=== PATIENT | female | born 1985 | race Caucasian/White ===

== ENCOUNTER 2025-03-24 19:59 | Emergency (ER) | payer OTHER ==
[2025-03-24] MEDS: Sodium Chloride 0.9% 10 ML Syringe FLUSH PRN (20:34)
[2025-03-24 20:37] LABS: BASOPHILS PERCENT AUTO 0.3 % (0.1-1.3); EOSINOPHILS PERCENT AUTO 0.3 % (0.0-5.4); HEMATOCRIT 38.1 % (34.3-46.0); HEMOGLOBIN 12.8 g/dL (11.2-15.5); IMMATURE GRAN ABSOLUTE AUTO 0.03 K/uL (0.00-0.23); IMMATURE GRAN PERCENT AUTO 0.4 % (0.0-0.7); LYMPHOCYTES ABSOLUTE AUTO 1.94 K/uL (0.8-3.3); LYMPHOCYTES PERCENT AUTO 26.1 % (11.4-47.7); MEAN CORPUSCULAR HEMOGLOBIN 30.6 pg (31.6-35.5); MEAN CORPUSCULAR HGB CONC 33.6 g/dL (31.6-35.5); MEAN CORPUSCULAR VOLUME 91.1 fL (81.4-99.0); MONOCYTES ABSOLUTE AUTO 0.53 K/uL (0.20-0.90); MONOCYTES PERCENT AUTO 7.1 % (3.3-12.6); NEUTROPHILS ABSOLUTE AUTO 4.88 K/uL (1.0-7.6); NEUTROPHILS PERCENT AUTO 65.8 % (40.0-78.1); PLATELET COUNT,PLT 195 K/uL (130-375); RED BLOOD CELL COUNT 4.18 M/uL (3.77-5.24); WHITE BLOOD CELL COUNT,WBC 7.4 K/uL (3.2-11.0)
[2025-03-24 20:38] LABS: BASOPHILS ABSOLUTE AUTO 0.02 K/uL (0.00-0.10); EOSINOPHILS ABSOLUTE AUTO 0.02 K/uL (0.00-0.40)
[2025-03-24 21:01] LABS: A/G RATIO 1.2 (1.2-2.2); ALANINE AMINOTRANSFERASE,ALT 27 U/L (12-78); ALBUMIN 4.1 g/dL (3.4-5.0); ALKALINE PHOSPHATASE 52 U/L (46-116); ASPARTATE AMNIOTRANSFERASE,AST 23 U/L (15-37); BILIRUBIN TOTAL 0.7 mg/dL (0.2-1.0); BLOOD UREA NITROGEN,BUN 13 mg/dL (7-18); CARBON DIOXIDE,CO2 28 mmol/L (21-32); CHLORIDE,CL 103 mmol/L (100-108); EST CRCL DRUG DOSING (CG) 77.37 mL/min; ESTIMATED GFR 73 mL/min (>60); GLUCOSE RANDOM 158 mg/dL (74-106); POTASSIUM,K 3.5 mmol/L (3.6-5.2); PROTEIN TOTAL,TP 7.5 g/dL (6.4-8.2); SODIUM,NA 140 mmol/L (140-148); TROPONIN I HIGH SENSITIVITY 14.8 pg/mL (<=60.3)
[2025-03-24 21:03] LABS: ANION GAP 12.5 mmol/L (5.0-14.0)
== END 2025-03-24 22:00 | disposition home or self-care (01) ==
LOC: JP.ED 19:59
DX: R07.89 Other chest pain (principal)
CPT/HCPCS: 36415; 71046; 71046-26; 80053; 84484; 84703; 85025; 85379; 99285